=== PATIENT | male | born 1945 | race Caucasian/White ===

== ENCOUNTER 2025-04-14 21:54 | Emergency (ER) | payer MEDICARE ==
[2025-04-14 22:48] LABS: BASOPHILS ABSOLUTE AUTO 0.01 K/uL (0.02-0.10); BASOPHILS PERCENT AUTO 0.1 % (0.0-0.5); EOSINOPHILS ABSOLUTE AUTO 0.01 K/uL (0.04-0.40); EOSINOPHILS PERCENT AUTO 0.1 % (1.0-5.0); LYMPHOCYTES ABSOLUTE AUTO 1.15 K/uL (1.50-4.00); LYMPHOCYTES PERCENT AUTO 12.1 % (20.0-40.0); MEAN PLATELET VOLUME 10.4 fL (6.0-10.0); MONOCYTES ABSOLUTE AUTO 0.91 K/uL (0.20-0.80); MONOCYTES PERCENT AUTO 9.6 % (3.0-10.0); NEUTROPHILS ABSOLUTE AUTO 7.40 K/uL (2.00-7.50); NEUTROPHILS PERCENT AUTO 78.1 % (45.0-70.0); PLATELET COUNT,PLT 218 K/uL (150-400); RED BLOOD CELL COUNT 5.24 M/uL (4.50-6.50); RED CELL DISTRIBUTION WIDTH 14.5 % (11.0-16.0); WHITE BLOOD CELL COUNT,WBC 9.5 K/uL (4.0-11.0)
[2025-04-14 23:07] LABS: A/G RATIO 1.0 (0.8-2.0); ALANINE AMINOTRANSFERASE,ALT 389.0 U/L (12-78); ASPARTATE AMNIOTRANSFERASE,AST 386.0 U/L (15-37); BILIRUBIN TOTAL 2.7 mg/dL (0.0-1.0); BLOOD UREA NITROGEN,BUN 16.0 mg/dL (8-26); CARBON DIOXIDE,CO2 32.3 mmol/L (21.0-32.0); CHLORIDE,CL 102.0 mmol/L (98-107); CREATININE 0.77 mg/dL (0.70-1.30); EST CRCL DRUG DOSING (CG) 77.79 mL/min; ESTIMATED GFR 91.0 mL/min (>60); GLUCOSE RANDOM 112.0 mg/dL (74-100); POTASSIUM,K 3.8 mmol/L (3.5-5.1); PROTEIN TOTAL,TP 6.6 g/dL (6.4-8.2); SODIUM,NA 140.0 mmol/L (136-145)
== END 2025-04-14 23:47 | disposition home or self-care (01) ==
LOC: LB.ED 21:54
DX: K59.00 Constipation, unspecified (principal); R74.8 Abnormal levels of other serum enzymes; Z88.8 Allergy status to other drugs, medicaments and biological substances; Z79.899 Other long term (current) drug therapy
CPT/HCPCS: 36415; 74018; 80053; 85025; 99284; A9270

== ENCOUNTER 2025-04-17 19:00 | Emergency (ER) | payer MEDICARE ==
[2025-04-17] MEDS: Magnesium Citrate Solution 296 ML Bottle PO ONE (19:52)
== END 2025-04-17 20:00 | disposition home or self-care (01) ==
LOC: LB.ED 19:00
DX: K85.10 Biliary acute pancreatitis without necrosis or infection (principal); K80.20 Calculus of gallbladder without cholecystitis without obstruction; E78.00 Pure hypercholesterolemia, unspecified; Z79.899 Other long term (current) drug therapy; Z88.8 Allergy status to other drugs, medicaments and biological substances
CPT/HCPCS: 99283; A9270-GY